=== PATIENT | male | born 2000 | race Hispanic/Latino ===

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

== ENCOUNTER 2025-01-25 01:20 | Emergency (ER) | payer SELFPAY ==
[2025-01-25 01:55] LABS: #Basophils 0.2 thou/uL (0.0-0.2); #Eosinophils 0.7 thou/uL (0.0-0.7); #Lymphocytes 4.0 thou/uL (1.20-3.40); #Monocytes 1.1 thou/uL (0.11-0.59); #Neutrophils 2.8 thou/uL (1.40-6.50); %Basophils 2.3 % (0.0-1.0); %Eosinophils 8.0 % (0.0-10.0); %Lymphocytes 45.4 % (21.0-51.0); %Monocytes 12.5 % (0.0-10.0); %Neutrophils 31.8 % (42.0-75.0); Hematocrit 45.6 % (42.0-52.0); Hemoglobin 14.4 g/dL (14.0-18.0); Mean Corpuscular Hemoglobin 28.7 pg (27.0-31.0); Mean Corpuscular Volume 90.7 fl (78.0-98.0); Platelet Count 277 10x3/uL (130-400); Red Blood Cell (RBC) Count 5.02 mill/uL (4.70-6.10); White Blood Cell (WBC) Count 8.7 10x3/uL (4.8-10.8)
[2025-01-25 02:11] LABS: ALT (SGPT) 9 U/L (Less than 45); AST (SGOT) 28 U/L (11-34); Albumin 4.1 g/dL (3.1-4.5); Alkaline Phosphatase 52 U/L (40-110); Anion Gap 16 mmol/L (10-20); BUN (Urea Nitrogen) 19 mg/dL (8.9-20.6); Bilirubin, Total 0.3 mg/dL (0.3-1.2); Calc. Creatinine Clearance 0 mL/min (70-130); Calcium 8.4 mg/dL (7.8-10.44); Carbon Dioxide 23 mmol/L (22-29); Chloride 108 mmol/L (98-107); Globulin 2.6 g/dL (2.4-3.5); Glucose 145 mg/dL (70-105); Potassium 3.9 mmol/L (3.5-5.1); Sodium 143 mmol/L (136-145)
[2025-01-25 02:12] LABS: Acetaminophen Less than 10 mcg/mL (Less than 10); Salicylate Less than 8.0 mg/dL (Less than 8.0)
[2025-01-25 02:16] LABS: Cocaine Metabolite Screen Negative (Negative); THC/Cannabinoid Screen PRELIM POSITIVE (Negative); Tricyclic Screen Negative (Negative)
== END 2025-01-25 03:55 | disposition home or self-care (01) ==
LOC: MADERS 01:20
DX: F12.929 Cannabis use, unspecified with intoxication, unspecified (principal)
CPT/HCPCS: 36415; 80053; 80306; 80307; 85025; 93005; 99283